=== PATIENT | female | born 1965 | race Caucasian/White ===

== ENCOUNTER 2020-09-12 15:23 | Outpatient (CLI) | payer OTHER | END 2020-09-12 15:24 | disposition home or self-care (01) | LOC: CTENTCT 15:23 | PROVIDERS: ATTEND Otolaryngology Plastic Surgery within the Head & Neck | DX: J32.9 Chronic sinusitis, unspecified (principal) | CPT/HCPCS: 70486 ==

== ENCOUNTER 2020-10-16 03:35 | Inpatient (IN) | payer OTHER ==
[2020-10-16] MEDS ORDERED: Magnesium 2 GM/50 ML BAG (IN WATER) ONE (05:05)
[2020-10-16 06:33] VITALS: BMI 34.8
[2020-10-16] MEDS ORDERED: Albuterol Sulfate 2.5 mg/3 ml Neb NEB PRN (08:53)
[2020-10-16] MEDS ORDERED: Acetaminophen 650 MG Suppository PR PRN (08:54)
[2020-10-16] MEDS ORDERED: Ondansetron PF 4 MG/2 ML Vial IVP PRN (08:54)
[2020-10-16] MEDS ORDERED: Acetaminophen 325 MG TAB PO PRN (08:54)
[2020-10-16] MEDS ORDERED: Ondansetron ODT 4 MG TAB PO PRN (08:54)
[2020-10-16] MEDS ORDERED: Dextrose 5% in Water 1,000 ML IV PRN (09:12)
[2020-10-16] MEDS ORDERED: Insulin Regular 300 UNITS/3 ML VIAL SC PRN (09:12)
[2020-10-16] MEDS ORDERED: Dextrose 50% Abboject 50 ML SYRINGE SLOW IVP PRN (09:12)
[2020-10-16] MEDS: cefTRIAXone\\ROCEPHIN 1 GM in Sodium Chloride 0.9% 100 ML IVPB SCH (12:11)
[2020-10-16] MEDS: Enoxaparin Sodium 40 MG/0.4 ML SYRINGE SC SCH (12:14)
[2020-10-16] MEDS: methylPREDNISolone Sod Succ 40 MG VIAL IVP SCH ×2 (12:15→18:28)
[2020-10-16] MEDS: Insulin Regular 300 UNITS/3 ML VIAL SC PRN ×2 (12:15→18:48)
[2020-10-17] MEDS: methylPREDNISolone Sod Succ 40 MG VIAL IVP SCH ×3 (00:15→11:08)
[2020-10-17] MEDS: Insulin Regular 300 UNITS/3 ML VIAL SC PRN ×3 (06:24→16:41)
[2020-10-17 07:03] LABS: Anion Gap 11 mmol/L (10-20); BUN (Urea Nitrogen) 9 mg/dL (9.8-20.1); Calc. Creatinine Clearance 127 mL/min (70-130); Calcium 9.2 mg/dL (7.8-10.44); Carbon Dioxide 23 mmol/L (22-29); Chloride 107 mmol/L (98-107); Glucose 237 mg/dL (70-105); Potassium 3.9 mmol/L (3.5-5.1); Sodium 137 mmol/L (136-145)
[2020-10-17 07:07] LABS: Hemoglobin 14.4 g/dL (12.0-16.0); Mean Corpuscular Hemoglobin 34.2 pg (27.0-31.0); Mean Corpuscular Volume 97.8 fL (78.0-98.0); Mean Platelet Volume 7.4 fL (7.4-10.4); Platelet Count 243 thou/uL (130-400); RBC Distribution Width 11.4 % (11.5-14.5); Red Blood Cell (RBC) Count 4.21 mill/uL (4.20-5.40); White Blood Cell (WBC) Count 21.3 thou/uL (4.8-10.8)
[2020-10-17 08:35] LABS: Band 1 % (5-11); Eosinophils 1 % (0-10); Lymphocytes 18 % (21-51); MDiff Complete? YES; Monocytes 4 % (0-10); Neutrophil 76 % (42-75); Platelet Morphology Comment Appears Adequate; Polychromasia SLIGHT = 2-3 cells (100X) (0-2/hpf)
[2020-10-17] MEDS: Enoxaparin Sodium 40 MG/0.4 ML SYRINGE SC SCH (09:15)
[2020-10-17] MEDS ORDERED: Losartan 25 MG TAB PO SCH (09:30)
[2020-10-17] MEDS ORDERED: Alogliptin 25 MG TAB PO SCH (09:30)
[2020-10-17] MEDS ORDERED: Trospium 20 MG TAB PO SCH (09:45)
[2020-10-17] MEDS ORDERED: Venlafaxine HCl XR 75 MG CAP PO SCH (09:45)
[2020-10-17] MEDS ORDERED: Atorvastatin Calcium 40 MG TAB PO SCH (09:45)
[2020-10-17] MEDS: cefTRIAXone\\ROCEPHIN 1 GM in Sodium Chloride 0.9% 100 ML IVPB SCH (10:07)
[2020-10-17] MEDS ORDERED: Lantus 1000 UNITS/10 ML VIAL SC SCH (21:00)
[2020-10-17] MEDS: Trospium 20 MG TAB PO SCH (22:30)
[2020-10-18] MEDS ORDERED: Levothyroxine Sodium 88 MCG TAB PO SCH (06:00)
[2020-10-18 06:27] LABS: Anion Gap 10 mmol/L (10-20); BUN (Urea Nitrogen) 12 mg/dL (9.8-20.1); Calc. Creatinine Clearance 135 mL/min (70-130); Calcium 8.7 mg/dL (7.8-10.44); Carbon Dioxide 25 mmol/L (22-29); Chloride 106 mmol/L (98-107); Glucose 139 mg/dL (70-105); Potassium 3.8 mmol/L (3.5-5.1); Sodium 137 mmol/L (136-145)
[2020-10-18 06:36] LABS: Band 3 % (5-11); Lymphocytes 28 % (21-51); MDiff Complete? YES; Macrocytosis SLIGHT = 6-15 cells (100X) (0-5/hpf); Mean Corpuscular HGB CONC 34.4 g/dL (32.0-36.0); Mean Corpuscular Hemoglobin 34.4 pg (27.0-31.0); Mean Platelet Volume 7.3 fL (7.4-10.4); Monocytes 2 % (0-10); Neutrophil 57 % (42-75); Platelet Count 244 thou/uL (130-400); Platelet Morphology Comment Appears Adequate; RBC Distribution Width 11.6 % (11.5-14.5); Reactive Lymphocytes 10 % (0-10); Red Blood Cell (RBC) Count 4.05 mill/uL (4.20-5.40); White Blood Cell (WBC) Count 21.6 thou/uL (4.8-10.8)
[2020-10-18] MEDS ORDERED: predniSONE 20 MG TAB PO SCH (08:00)
[2020-10-18] MEDS: Trospium 20 MG TAB PO SCH (08:22)
[2020-10-18] MEDS: Enoxaparin Sodium 40 MG/0.4 ML SYRINGE SC SCH (08:23)
[2020-10-18] MEDS ORDERED: Citalopram 20 MG TAB PO SCH (09:00)
[2020-10-18] MEDS ORDERED: Ketoconazole 2% Cream 15 gm Tube TOP SCH (09:00)
[2020-10-18] MEDS ORDERED: Alogliptin 25 MG TAB PO SCH (09:00)
[2020-10-18] MEDS ORDERED: Atorvastatin Calcium 40 MG TAB PO SCH (09:00)
[2020-10-18] MEDS ORDERED: Losartan 25 MG TAB PO SCH (09:00)
[2020-10-18] MEDS ORDERED: Venlafaxine HCl XR 75 MG CAP PO SCH (09:00)
[2020-10-18] MEDS: cefTRIAXone\\ROCEPHIN 1 GM in Sodium Chloride 0.9% 100 ML IVPB SCH (11:33)
[2020-10-18 12:04] VITALS: BP 136/77; TEMP 97.8
== END 2020-10-18 13:03 | disposition home or self-care (01) | DRG 189 ==
LOC: ERS 03:35 → T4-A 04:45 → OBSVTOIN 10-18 10:42
PROVIDERS: ADMIT Student in an Organized Health Care Education/Training Program; ATTEND Internal Medicine
DX: J96.01 Acute respiratory failure with hypoxia (principal); J44.1 Chronic obstructive pulmonary disease with (acute) exacerbation; Z20.822 Contact with and (suspected) exposure to COVID-19; R01.1 Cardiac murmur, unspecified; E03.9 Hypothyroidism, unspecified; I10 Essential (primary) hypertension; E11.9 Type 2 diabetes mellitus without complications; G47.33 Obstructive sleep apnea (adult) (pediatric); E66.9 Obesity, unspecified; E78.5 Hyperlipidemia, unspecified; F32.9 Major depressive disorder, single episode, unspecified; D72.829 Elevated white blood cell count, unspecified; T38.0X5A Adverse effect of glucocorticoids and synthetic analogues, initial encounter; Z68.34 Body mass index [BMI] 34.0-34.9, adult; Z82.49 Family history of ischemic heart disease and other diseases of the circulatory system; Z79.899 Other long term (current) drug therapy; Z79.890 Hormone replacement therapy; Z79.4 Long term (current) use of insulin
CPT/HCPCS: 36415; 36416; 80048; 85025; 87070; 87205; 94640; 96365; 96372; 96375; 96376; G0378; J0696; J1650; J1815; J2920; J3475; J3490; J7512; J7620

== ENCOUNTER 2020-11-10 12:58 | Outpatient (CLI) | payer OTHER ==
[2020-11-10 14:59] LABS: Anion Gap 14 mmol/L (10-20); BUN (Urea Nitrogen) 8 mg/dL (9.8-20.1); Calc. Creatinine Clearance 0 mL/min (70-130); Calcium 9.2 mg/dL (7.8-10.44); Carbon Dioxide 25 mmol/L (22-29); Chloride 106 mmol/L (98-107); Glucose 217 mg/dL (70-105); Potassium 3.9 mmol/L (3.5-5.1); Sodium 141 mmol/L (136-145)
== END 2020-11-10 12:59 | disposition home or self-care (01) ==
LOC: LABBT 12:58
PROVIDERS: ATTEND Otolaryngology Plastic Surgery within the Head & Neck
DX: Z01.812 Encounter for preprocedural laboratory examination (principal); J32.9 Chronic sinusitis, unspecified; J30.9 Allergic rhinitis, unspecified; J34.3 Hypertrophy of nasal turbinates; J30.0 Vasomotor rhinitis; K21.9 Gastro-esophageal reflux disease without esophagitis; J34.2 Deviated nasal septum; J32.0 Chronic maxillary sinusitis; J32.1 Chronic frontal sinusitis; J32.2 Chronic ethmoidal sinusitis; J32.3 Chronic sphenoidal sinusitis; J33.9 Nasal polyp, unspecified
CPT/HCPCS: 80048; 85014

== ENCOUNTER 2020-11-15 05:56 | Day surgery (SDC) | payer OTHER ==
[2020-11-14 11:10] VITALS: BMI 37.0
[2020-11-15] MEDS ORDERED: AFRIN NASAL MIST 15 ML BOT ONE ×2 (06:53→07:56)
[2020-11-15] MEDS ORDERED: Lidocaine 1% w/Epinephrine 1:100K 20 ML VIAL ONE (07:55)
[2020-11-15] MEDS ORDERED: Bacitracin Zinc Ointment 30 gm TUBE ONE (07:56)
[2020-11-15] MEDS ORDERED: Labetalol HCl 100 MG/20 ML VIAL ONE (08:05)
[2020-11-15] MEDS ORDERED: PROPOFOL 200 MG/20 ML VIAL ONE (08:05)
[2020-11-15] MEDS ORDERED: Ondansetron PF 4 MG/2 ML Vial ONE (08:05)
[2020-11-15] MEDS ORDERED: Midazolam HCl 2 mg/2 ml Vial ONE (08:05)
[2020-11-15] MEDS ORDERED: Rocuronium Bromide 10 MG/ML (10ML VIAL) ONE (08:05)
[2020-11-15] MEDS ORDERED: Glycopyrrolate 0.2 MG/ML 5 ML SYRINGE ONE (08:05)
[2020-11-15] MEDS ORDERED: Fentanyl 100 MCG/2 ML VIAL ONE (08:05)
[2020-11-15] MEDS ORDERED: Dexamethasone 20 MG/5 ML VIAL ONE (08:05)
[2020-11-15] MEDS ORDERED: HYDROcodone/Acetaminophen 5/325 mg Tablet ONE (10:35)
== END 2020-11-15 11:35 | disposition home or self-care (01) ==
LOC: SDC 05:56
PROVIDERS: ATTEND Otolaryngology Plastic Surgery within the Head & Neck
PROC: 099W8ZZ Drainage of Right Sphenoid Sinus, Via Natural or Artificial Opening Endoscopic (ICD-10-PCS; principal; 2020-11-15)
PROC: 09BV8ZZ Excision of Left Ethmoid Sinus, Via Natural or Artificial Opening Endoscopic (ICD-10-PCS; principal; 2020-11-15)
PROC: 099X8ZZ Drainage of Left Sphenoid Sinus, Via Natural or Artificial Opening Endoscopic (ICD-10-PCS; principal; 2020-11-15)
PROC: 099R8ZZ Drainage of Left Maxillary Sinus, Via Natural or Artificial Opening Endoscopic (ICD-10-PCS; principal; 2020-11-15)
PROC: 09SM4ZZ Reposition Nasal Septum, Percutaneous Endoscopic Approach (ICD-10-PCS; principal; 2020-11-15)
PROC: 09BU8ZZ Excision of Right Ethmoid Sinus, Via Natural or Artificial Opening Endoscopic (ICD-10-PCS; principal; 2020-11-15)
PROC: 09BT8ZZ Excision of Left Frontal Sinus, Via Natural or Artificial Opening Endoscopic (ICD-10-PCS; principal; 2020-11-15)
PROC: 09BS8ZZ Excision of Right Frontal Sinus, Via Natural or Artificial Opening Endoscopic (ICD-10-PCS; principal; 2020-11-15)
PROC: 09BL8ZZ Excision of Nasal Turbinate, Via Natural or Artificial Opening Endoscopic (ICD-10-PCS; principal; 2020-11-15)
PROC: 099Q8ZZ Drainage of Right Maxillary Sinus, Via Natural or Artificial Opening Endoscopic (ICD-10-PCS; principal; 2020-11-15)
PROC: 8E09XBZ Computer Assisted Procedure of Head and Neck Region (ICD-10-PCS; principal; 2020-11-15)
DX: J32.4 Chronic pansinusitis (principal); J33.8 Other polyp of sinus; J34.2 Deviated nasal septum; J34.3 Hypertrophy of nasal turbinates; J34.89 Other specified disorders of nose and nasal sinuses; K21.9 Gastro-esophageal reflux disease without esophagitis; Z79.4 Long term (current) use of insulin; Z79.51 Long term (current) use of inhaled steroids; Z79.899 Other long term (current) drug therapy; Z88.1 Allergy status to other antibiotic agents
CPT/HCPCS: 36416; 88305; J1100; J2250; J2405; J2704; J3010

== ENCOUNTER 2023-12-17 17:43 | Emergency (ER) | payer OTHER, BC ==
[2023-12-17] MEDS ORDERED: Ondansetron ODT 4 MG TAB ONE (19:41)
[2023-12-17 20:05] LABS: #Basophils 0.08 10x3/uL (0.0-0.2); %Basophils 0.6 % (0.0-1.0); %Eosinophils 14.9 % (0.0-10.0); %Lymphocytes 15.9 % (21.0-51.0); %Monocytes 11.4 % (0.0-10.0); %Neutrophils 56.8 % (42.0-75.0); Hematocrit 44.7 % (36.0-47.0); Hemoglobin 15.7 g/dL (12.0-16.0); Mean Corpuscular HGB CONC 35.1 g/dL (32.0-36.0); Mean Corpuscular Hemoglobin 32.5 pg (27.0-31.0); Mean Corpuscular Volume 92.5 fL (78.0-98.0); Mean Platelet Volume 9.2 fL (7.4-10.4); Platelet Count 223 10x3/uL (130-400); RBC Distribution Width 11.7 % (11.5-14.5); Red Blood Cell (RBC) Count 4.83 mill/uL (4.20-5.40)
[2023-12-17 20:17] LABS: ALT (SGPT) 16 U/L (8-55); AST (SGOT) 15 U/L (5-34); Albumin 3.7 g/dL (3.5-5.0); Alkaline Phosphatase 79 U/L (40-110); Anion Gap 13 mmol/L (10-20); BUN (Urea Nitrogen) 10 mg/dL (9.8-20.1); Bilirubin, Total 1.2 mg/dL (0.2-1.2); Calc. Creatinine Clearance 0 mL/min (70-130); Calcium 9.3 mg/dL (7.8-10.44); Carbon Dioxide 23 mmol/L (22-29); Chloride 103 mmol/L (98-107); Estimated GFR 94; Globulin 3.3 g/dL (2.4-3.5); Glucose 111 mg/dL (70-105); Lipase 29 U/L (8-78); Potassium 3.6 mmol/L (3.5-5.1); Sodium 135 mmol/L (136-145)
[2023-12-17 20:20] LABS: Bacteria/HPF None Seen HPF (None Seen); Bilirubin Negative (Negative); Blood, Urine Negative (Negative); CAUTI Indications for Culture Dysuria,urgency,freq; Clarity Clear (Clear); Glucose, Urine (Dipstick) Normal (Negative); Ketone, Urine Negative (Negative); Leukocyte Negative Leu/uL (Negative); Nitrite Negative (Negative); Protein, Urine (Dipstick) Negative (Neg-Trace); RBC/HPF 0-3 HPF (0-3); Specific Gravity, Urine 1.018 (1.002-1.036); Squamous Epithelial 0-3 HPF (0-3); Urobilinogen Normal mg/dL (Less than 2); WBC/HPF 0-3 HPF (0-3); pH, Urine 5.5 (5.0-9.0)
[2023-12-17 20:21] LABS: Urine Culture Reflex No No
[2023-12-17 20:23] LABS: Troponin I Less than 0.010 ng/mL (< 0.028)
[2023-12-17 21:46] LABS: Influenza A by NAA Not Detected (NotDetected); Influenza B by NAA Not Detected (NotDetected); SARS-CoV-2 NAA Rapid Test Not Detected (NotDetected)
== END 2023-12-17 22:10 | disposition home or self-care (01) ==
LOC: ERS 17:43
DX: R11.2 Nausea with vomiting, unspecified (principal); R21 Rash and other nonspecific skin eruption; E11.9 Type 2 diabetes mellitus without complications; I10 Essential (primary) hypertension
CPT/HCPCS: 36415; 80053; 81001; 83690; 84484; 85025; 93005; Q0162

== ENCOUNTER 2025-03-04 15:50 | Inpatient (IN) | payer BC ==
[2025-03-04] MEDS ORDERED: Acetaminophen 325 MG TAB PO PRN (19:18)
[2025-03-04] MEDS ORDERED: Dextrose 50% Abboject 50 ML SYRINGE SLOW IVP PRN (19:20)
[2025-03-04 19:29] VITALS: BMI 31.2
[2025-03-04] MEDS: Albumin 25% 25 GM (100 mL) BOT IVPB SCH (20:52)
[2025-03-04] MEDS: Pantoprazole 40 MG VIAL IVP SCH (20:52)
[2025-03-04] MEDS: Senokot S 8.6-50 MG TAB PO SCH (20:52)
[2025-03-05] MEDS: QUEtiapine 25 MG TAB PO SCH ×2 (00:06→19:46)
[2025-03-05 06:13] LABS: #Basophils 0.06 10x3/uL (0.0-0.2); #Eosinophils 0.67 10x3/uL (0.0-0.7); #Monocytes 0.91 10x3/uL (0.11-0.59); #Neutrophils 2.99 10x3/uL (1.40-6.50); %Basophils 0.9 % (0.0-1.0); %Eosinophils 9.9 % (0.0-10.0); %Lymphocytes 31.2 % (21.0-51.0); %Monocytes 13.5 % (0.0-10.0); %Neutrophils 44.2 % (42.0-75.0); Hematocrit 30.8 % (36.0-47.0); Hemoglobin 9.9 g/dL (12.0-16.0); Mean Corpuscular Hemoglobin 30.3 pg (27.0-31.0); Mean Corpuscular Volume 94.2 fL (78.0-98.0); Platelet Count 287 10x3/uL (130-400); Red Blood Cell (RBC) Count 3.27 mill/uL (4.20-5.40); White Blood Cell (WBC) Count 6.76 10x3/uL (4.8-10.8)
[2025-03-05 06:41] LABS: Anion Gap 13 mmol/L (10-20); BUN (Urea Nitrogen) 16 mg/dL (9.8-20.1); Calc. Creatinine Clearance 33 mL/min (70-130); Calcium 8.4 mg/dL (7.8-10.44); Carbon Dioxide 24 mmol/L (23-31); Chloride 110 mmol/L (98-107); Glucose 104 mg/dL (80-115); Magnesium 1.8 mg/dL (1.6-2.6); Potassium 3.4 mmol/L (3.5-5.1); Sodium 144 mmol/L (136-145)
[2025-03-05] MEDS: Citalopram 20 MG TAB PO SCH (08:13)
[2025-03-05] MEDS: Potassium Bicarbonate/Cit Ac 20 MEQ TAB PO SCH (08:13)
[2025-03-05] MEDS: Pantoprazole 40 MG VIAL IVP SCH (08:30)
[2025-03-05] MEDS: Ondansetron PF 4 MG/2 ML Vial IVP PRN (11:18)
[2025-03-05 13:44] VITALS: BMI 31.2
[2025-03-05] MEDS: Mometasone 100 MCG HFA INHALER (RT USE) INH SCH (19:08)
[2025-03-06 06:33] LABS: #Basophils 0.06 10x3/uL (0.0-0.2); #Eosinophils 0.63 10x3/uL (0.0-0.7); #Monocytes 0.80 10x3/uL (0.11-0.59); #Neutrophils 3.89 10x3/uL (1.40-6.50); %Basophils 0.8 % (0.0-1.0); %Eosinophils 7.9 % (0.0-10.0); %Lymphocytes 32.2 % (21.0-51.0); %Monocytes 10.0 % (0.0-10.0); %Neutrophils 48.6 % (42.0-75.0); Hematocrit 34.2 % (36.0-47.0); Hemoglobin 11.5 g/dL (12.0-16.0); Mean Corpuscular Hemoglobin 31.2 pg (27.0-31.0); Mean Corpuscular Volume 92.7 fL (78.0-98.0); Platelet Count 354 10x3/uL (130-400); Red Blood Cell (RBC) Count 3.69 mill/uL (4.20-5.40); White Blood Cell (WBC) Count 7.99 10x3/uL (4.8-10.8)
[2025-03-06 06:52] LABS: Anion Gap 16 mmol/L (10-20); BUN (Urea Nitrogen) 9 mg/dL (9.8-20.1); Calc. Creatinine Clearance 55 mL/min (70-130); Calcium 9.1 mg/dL (7.8-10.44); Carbon Dioxide 26 mmol/L (23-31); Chloride 104 mmol/L (98-107); Glucose 112 mg/dL (80-115); Magnesium 1.6 mg/dL (1.6-2.6); Potassium 3.3 mmol/L (3.5-5.1); Sodium 143 mmol/L (136-145)
[2025-03-06] MEDS ORDERED: Lidocaine 1% PF 5 ML VIAL ONE (09:13)
[2025-03-06] MEDS ORDERED: PROPOFOL 20 ML ONE (09:13)
[2025-03-07 04:47] LABS: #Basophils 0.07 10x3/uL (0.0-0.2); #Eosinophils 0.64 10x3/uL (0.0-0.7); #Monocytes 0.95 10x3/uL (0.11-0.59); #Neutrophils 3.75 10x3/uL (1.40-6.50); %Basophils 0.8 % (0.0-1.0); %Eosinophils 7.6 % (0.0-10.0); %Lymphocytes 35.9 % (21.0-51.0); %Monocytes 11.2 % (0.0-10.0); %Neutrophils 44.3 % (42.0-75.0); Hematocrit 32.5 % (36.0-47.0); Hemoglobin 10.8 g/dL (12.0-16.0); Mean Corpuscular Hemoglobin 30.8 pg (27.0-31.0); Mean Corpuscular Volume 92.6 fL (78.0-98.0); Platelet Count 306 10x3/uL (130-400); Red Blood Cell (RBC) Count 3.51 mill/uL (4.20-5.40); White Blood Cell (WBC) Count 8.47 10x3/uL (4.8-10.8)
[2025-03-07 05:16] LABS: Anion Gap 13 mmol/L (10-20); BUN (Urea Nitrogen) 8 mg/dL (9.8-20.1); Calc. Creatinine Clearance 78 mL/min (70-130); Calcium 8.9 mg/dL (7.8-10.44); Carbon Dioxide 28 mmol/L (23-31); Chloride 103 mmol/L (98-107); Glucose 97 mg/dL (80-115); Potassium 3.5 mmol/L (3.5-5.1); Sodium 140 mmol/L (136-145)
[2025-03-07 07:51] VITALS: BP 114/74; TEMP 98.4
== END 2025-03-07 11:10 | disposition home or self-care (01) | DRG 392 ==
LOC: T4-A 18:07 → OBSVTOIN 03-05 13:35
PROVIDERS: ADMIT Internal Medicine; ATTEND Internal Medicine
PROC: 0DJ08ZZ Inspection of Upper Intestinal Tract, Via Natural or Artificial Opening Endoscopic (ICD-10-PCS; principal; 2025-03-06)
DX: R11.2 Nausea with vomiting, unspecified (principal); N17.9 Acute kidney failure, unspecified; E03.9 Hypothyroidism, unspecified; G47.33 Obstructive sleep apnea (adult) (pediatric); E86.1 Hypovolemia; E78.5 Hyperlipidemia, unspecified; N18.30 Chronic kidney disease, stage 3 unspecified; I12.9 Hypertensive chronic kidney disease with stage 1 through stage 4 chronic kidney disease, or unspecified chronic kidney disease; E11.22 Type 2 diabetes mellitus with diabetic chronic kidney disease; J44.9 Chronic obstructive pulmonary disease, unspecified; D63.1 Anemia in chronic kidney disease; R13.10 Dysphagia, unspecified; K59.09 Other constipation; E66.9 Obesity, unspecified; T38.3X5A Adverse effect of insulin and oral hypoglycemic [antidiabetic] drugs, initial encounter; R63.4 Abnormal weight loss; Z98.890 Other specified postprocedural states; Z90.49 Acquired absence of other specified parts of digestive tract; Z79.899 Other long term (current) drug therapy; Z79.84 Long term (current) use of oral hypoglycemic drugs; Z68.31 Body mass index [BMI] 31.0-31.9, adult
CPT/HCPCS: 36415; 36416; 76770; 80048; 83735; 85025; 94640; 96374; 96375; 96376; G0378; J2470; J2704; J7030; J7120; P9047